=== PATIENT | female | born 1970 | race Caucasian/White ===

== ENCOUNTER 2017-06-01 01:29 | Emergency (ER) | payer OTHER ==
[2017-06-01] VITALS (12 sets, daily range): BP systolic 96–132; BP diastolic 51–71; PULSE 82–128; RESP 16–30; TEMP 97.8–98.8; O2SAT 95–100
[~2017-06-01] VITALS: Ht 172.7 cm; Wt 60.0 kg
[2017-06-01] MEDS ORDERED: MIDAZOLAM HCL 5 MG/ML VIAL (1 ML) ONE (01:40)
[2017-06-01] MEDS ORDERED: ROCURONIUM INJ 50 MG/5 ML VIAL ONE (01:41)
[2017-06-01] MEDS ORDERED: SODIUM CHLORIDE 0.9% FLUSH 10 ML FLUSH IV FLUSH PRN (01:45)
[2017-06-01] MEDS ORDERED: VENTAER INH (02:01)
[2017-06-01] MEDS ORDERED: NORC5TAB (02:01)
[2017-06-01] MEDS ORDERED: ALPR0.5T3 PO (02:01)
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
[2017-06-01 02:44] LABS: BILIRUBIN, URINE NEG (NEG); BLOOD, URINE TRACE (NEG); GLUCOSE,URINE NEG (NEG); HYALINE CAST, URINE 2 /lpf (RARE); KETONE, URINE NEG (NEG); NITRITE,URINE NEG (NEG); PH, URINE 5.5 (5.0-8.5); SQUAMOUS EPITHELIAL CELL URINE 1 /hpf (0-5); URINE COLOR LIGHT-YELLOW (YELLW/STRAW); URINE LEUKOCYTE ESTERASE NEG (NEG)
[2017-06-01 02:52] LABS: AUTOMATED NEUTROPHIL # 2.9 TH/MM3 (1.8-7.7); BASOPHIL % 0.7 % (0.0-2.0); EOSINOPHIL # 0.2 TH/MM3 (0-0.4); EOSINOPHIL % 3.4 % (0.0-4.0); HEMATOCRIT 43.1 % (35.0-46.0); HEMOGLOBIN 14.6 GM/DL (11.6-15.3); LYMPHOCYTE # 2.1 TH/MM3 (1.0-4.8); MEAN CELL VOLUME 87.9 FL (80.0-100.0); MEAN CORPUSCULAR HEMOGLOBIN 29.9 PG (27.0-34.0); MEAN PLATELET VOLUME 8.3 FL (7.0-11.0); MONO % 8.2 % (0.0-8.0); MONOCYTE # 0.5 TH/MM3 (0-0.9); NEUT % 50.7 % (16.0-70.0); PLATELET COUNT 291 TH/MM3 (150-450); RED CELL DISTRIBUTION WIDTH 13.2 % (11.6-17.2); WHITE BLOOD COUNT 5.7 TH/MM3 (4.0-11.0)
[2017-06-01 02:56] LABS: LACTIC ACID SEPSIS PROTOCOL 2.7 mmol/L (0.4-2.0)
--- NOTE | 2017-06-01 02:57 | RADRPT ---
EXAM DATE/TIME: 06/01/2017 02:17 [facility] COMPARISON: No previous studies available for comparison. INDICATIONS : Shortness of breath. MEDICAL HISTORY : None. SURGICAL HISTORY : None. ENCOUNTER: Initial ACUITY: 1 day PAIN SCORE: Non-responsive. LOCATION: chest FINDINGS: A single view of the chest demonstrates the lungs to be symmetrically aerated without evidence of mas s, infiltrate or effusion. The cardiomediastinal contours are unremarkable. Osseous structures are intact. CONCLUSION: No acute disease. Luiz Arteaga MD on June 01, 2017 at 2:54 Board Certified Radiologist. This report was verified electronically.
--- NOTE | 2017-06-01 02:58 | RADRPT ---
EXAM DATE/TIME: 06/01/2017 02:41 [facility] COMPARISON: No previous studies available for comparison. INDICATIONS : Altered mental status. RADIATION DOSE: 56.35 CTDIvol (mGy) MEDICAL HISTORY : None SURGICAL HISTORY : None. ENCOUNTER: Initial ACUITY: 1 day PAIN SCALE: 0/10 LOCATION: cranial TECHNIQUE: Multiple contiguous axial images were obtained of the head. Using automated exposure control and adj ustment of the mA and/or kV according to patient size, radiation dose was kept as low as reasonably a chievable to obtain optimal diagnostic quality images. DICOM format image data is available electro nically for review and comparison. FINDINGS: CEREBRUM: The ventricles are normal for age. No evidence of midline shift, mass lesion, hemorrhage or acute in farction. No extra-axial fluid collections are seen. POSTERIOR FOSSA: The cerebellum and brainstem are intact. The 4th ventricle is midline. The cerebellopontine angle i s unremarkable. EXTRACRANIAL: The visualized portion of the orbits is intact. SKULL: The calvaria is intact. No evidence of skull fracture. CONCLUSION: Normal examination. Luiz Arteaga MD on June 01, 2017 at 2:54 Board Certified Radiologist. This report was verified electronically.
[2017-06-01 03:03] LABS: ALBUMIN 3.8 GM/DL (3.4-5.0); ALT (GPT) 17 U/L (10-53); AST (GOT) 14 U/L (15-37); BICARBONATE 26.3 MEQ/L (21.0-32.0); BLOOD UREA NITROGEN 6 MG/DL (7-18); CALCIUM 8.3 MG/DL (8.5-10.1); CHLORIDE 110 MEQ/L (98-107); CREATININE 0.68 MG/DL (0.50-1.00); GLOMERULAR FILTRATION RATE 92 ML/MIN (>89); GLUCOSE,RANDOM 97 MG/DL (74-106); SODIUM (NA) 144 MEQ/L (136-145)
[2017-06-01 03:07] LABS: ACETAMINOPHEN LESS THAN 2.0 MCG/ML (10.0-30.0); ALKALINE PHOSPHATASE 68 U/L (45-117); TOTAL BILIRUBIN ADULT 0.4 MG/DL (0.2-1.0); TOTAL PROTEIN 7.1 GM/DL (6.4-8.2); TROPONIN I LESS THAN 0.02 NG/ML (0.02-0.05)
[2017-06-01] MEDS ORDERED: IBUPROFEN 600 MG TAB PO ONE (08:45)
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
--- NOTE | 2017-06-01 17:57 | PD ---
Physical Exam Date Seen by Provider: Jun 01, 2017 Time Seen by Provider: 17:56 Narrative 46-year-old female previously medically clear for psychiatric evaluation has been seen and evaluated by psychiatric staff, and deemed psychiatrically stable for discharge at this time. Patient remains medically stable for discharge at this time. Follow-up will be based on psychiatric note. Data Data Last Documented VS Vital Signs Date Time Temp Pulse Resp B/P (MAP) Pulse Ox O2 Delivery O2 Flow Rate FiO2 06/01/17 14:08 94 20 112/64 (80) 06/01/17 12:28 98.2 97 Room Air 06/01/17 01:20 21 Orders Orders Midazolam Inj (Versed Inj) (06/01/17 01:40) Rocuronium Inj (Zemuron Inj) (06/01/17 01:41) Fentanyl Inj (Fentanyl Inj) (06/01/17 01:42) Electrocardiogram (06/01/17 01:42) Complete Blood Count With Diff (06/01/17 01:42) Comprehensive Metabolic Panel (06/01/17 01:42) Creatine Kinase (Cpk) (06/01/17 01:42) Troponin I (06/01/17 01:42) Urinalysis - C+S If Indicated (06/01/17 01:42) Lactic Acid Sepsis Protocol (06/01/17 01:42) Blood Culture (06/01/17 01:42) Chest, Single Ap (06/01/17 01:42) Ct Brain W/O Iv Contrast(Rout) (06/01/17 01:42) Blood Glucose (06/01/17 01:42) Ecg Monitoring (06/01/17 01:42) Iv Access Insert/Monitor (06/01/17 01:42) Oximetry (06/01/17 01:42) Sodium Chloride 0.9% Flush (Ns Flush) (06/01/17 01:45) Drug Screen, Random Urine (06/01/17 01:42) Alcohol (Ethanol) (06/01/17 01:42) Tylenol (Acetaminophen) (06/01/17 01:42) Salicylates (Aspirin) (06/01/17 01:42) Ed Urine Pregnancytest Poc (06/01/17 02:33) Psych Screen (06/01/17 06:59) Diet Regular Basic (06/01/17 Breakfast) Ibuprofen (Motrin) (06/01/17 08:45) Diet Regular Basic (06/01/17 Dinner) Labs Laboratory Tests Test 06/01/17 02:10 06/01/17 02:17 06/01/17 02:18 06/01/17 04:32 White Blood Count 5.7 TH/MM3 Red Blood Count 4.90 MIL/MM3 Hemoglobin 14.6 GM/DL Hematocrit 43.1 % Mean Corpuscular Volume 87.9 FL Mean Corpuscular Hemoglobin 29.9 PG Mean Corpuscular Hemoglobin Concent 34.0 % Red Cell Distribution Width 13.2 % Platelet Count 291 TH/MM3 Mean Platelet Volume 8.3 FL Neutrophils (%) (Auto) 50.7 % Lymphocytes (%) (Auto) 37.0 % Monocytes (%) (Auto) 8.2 % Eosinophils (%) (Auto) 3.4 % Basophils (%) (Auto) 0.7 % Neutrophils # (Auto) 2.9 TH/MM3 Lymphocytes # (Auto) 2.1 TH/MM3 Monocytes # (Auto) 0.5 TH/MM3 Eosinophils # (Auto) 0.2 TH/MM3 Basophils # (Auto) 0.0 TH/MM3 CBC Comment DIFF FINAL Differential Comment Urine Color LIGHT-YELLOW Urine Turbidity CLEAR Urine pH 5.5 Urine Specific [place] 1.007 Urine Protein NEG mg/dL Urine Glucose (UA) NEG mg/dL Urine Ketones NEG mg/dL Urine Occult Blood TRACE Urine Nitrite NEG Urine Bilirubin NEG Urine Urobilinogen LESS THAN 2.0 MG/DL Urine Leukocyte Esterase NEG Urine RBC LESS THAN 1 /hpf Urine WBC LESS THAN 1 /hpf Urine Squamous Epithelial Cells 1 /hpf Urine Hyaline Casts 2 /lpf Microscopic Urinalysis Comment CATH-CULT NOT IND Urine Opiates Screen NEG Urine Barbiturates Screen NEG Urine Amphetamines Screen NEG Urine Benzodiazepines Screen POS Urine Cocaine Screen NEG Urine Cannabinoids Screen NEG Lactic Acid Level 2.7 mmol/L 1.5 mmol/L Blood Urea Nitrogen 6 MG/DL Creatinine 0.68 MG/DL Random Glucose 97 MG/DL Total Protein 7.1 GM/DL Albumin 3.8 GM/DL Calcium Level 8.3 MG/DL Alkaline Phosphatase 68 U/L Aspartate Amino Transf (AST/SGOT) 14 U/L Alanine Aminotransferase (ALT/SGPT) 17 U/L Total Bilirubin 0.4 MG/DL Sodium Level 144 MEQ/L Potassium Level 3.8 MEQ/L Chloride Level 110 MEQ/L Carbon Dioxide Level 26.3 MEQ/L Anion Gap 8 MEQ/L Estimat Glomerular Filtration Rate 92 ML/MIN Total Creatine Kinase 104 U/L Troponin I LESS THAN 0.02 NG/ML Salicylates Level LESS THAN 1.7 MG/DL Acetaminophen Level LESS THAN 2.0 MCG/ML Ethyl Alcohol Level 233 MG/DL [facility] Medical Record Reviewed: Yes Supervised Visit with BALDEV: Yes Narrative Course 46-year-old female previously medically clear for psychiatric evaluation has been seen and evaluated by psychiatric staff, and deemed psychiatrically stable for discharge at this time. Patient remains medically stable for discharge at this time. Follow-up will be based on psychiatric note. Diagnosis Primary Impression: Adv eff benzodiaz tranq Additional Impression: Alcohol dependence with acute alcoholic intoxication Qualified Codes: F10.220 - Alcohol dependence with intoxication, uncomplicated Ruled Out: Suicidal intent Patient Instructions: General Instructions, Alcohol Intoxication (ED), Alcohol Dependence (ED) Departure Forms: Tests/Procedures Additional Instruction: Follow up with Emmett Archuleta (resource packet given). Follow up with [facility] or primary care practice for any medical issues. Do not mix Xanax or Hydrocodone with alcohol. Return to ED for any worsening. Disposition: 01 DISCHARGE HOME Condition: Stable Fausto Fernandez Jun 01, 2017 17:57
--- NOTE | 2017-06-01 19:32 | EKG ---
Date Performed: 06/01/2017 Time Performed: 02:02:59 PTAGE: 46 years EKG: SINUS TACHYCARDIA POSSIBLE RIGHT VENTRICULAR CONDUCTION DELAY ABNORMAL RHYTHM ECG NO PREVIOUS TRACING DOCTOR: Joe Sevilla Interpretating Date/Time 06/01/2017 19:29:46
== END 2017-06-01 18:20 | disposition home or self-care (01) ==
LOC: NEPE 01:29 → NEPJ 18:20
DX: R06.00 Dyspnea, unspecified (principal); F10.220 Alcohol dependence with intoxication, uncomplicated; R94.31 Abnormal electrocardiogram [ECG] [EKG]; F31.9 Bipolar disorder, unspecified; F14.90 Cocaine use, unspecified, uncomplicated; Z87.891 Personal history of nicotine dependence; Z79.899 Other long term (current) drug therapy; Z72.89 Other problems related to lifestyle
CPT/HCPCS: 31500; 70450; 71045; 80053; 80307; 81001; 82550; 83605; 84484; 84703; 85025; 87040; 93005; 99291; J2250; J3010